=== PATIENT | male | born 2000 | race American Indian/Alaskan Native ===

== ENCOUNTER 2021-01-08 12:03 | Emergency (ER) | payer MEDICAID ==
[2021-01-08 14:28] VITALS: BP 127/46
--- NOTE | 2021-01-08 14:49 | Emergency Department Report ---
ED General Adult HPI - General Chief complaint: Urogenital-Male Stated complaint: BLOON IN URINE Time Seen by Provider: 01/08/21 14:42 Source: patient Mode of arrival: Ambulatory Limitations: No Limitations - History of Present Illness Initial comments: 20-year-old sexually active male patient presents to emergency department with complaints of hematuria and dysuria starting today. Patient noticed 2 episodes of this today. No known history of STDs. No medical problems. Patient is not anticoagulated. Denies fever, chills, abdominal pain, nausea, vomiting, diarrhea, testicular pain/swelling, penile discharge. Denies all other complaints at this time. - Related Data Previous Rx's Medication Instructions Recorded Last Taken Type Doxycycline Hyclate 100 mg PO BID 7 Days tablet. 01/08/21 Unknown Rx Allergies Allergy/AdvReac Type Severity Reaction Status Date / Time No Known Allergies Allergy Unverified 01/08/21 14:25 ED Review of Systems ROS: Stated complaint: BLOON IN URINE Other details as noted in HPI Other: GENERAL: Negative for fever, chills, weight change, anorexia, fatigue. ENT: Negative for ear pain, difficulty hearing, sore throat, nasal congestion, epistaxis. CARDIOVASCULAR: Negative for chest pain, palpitations, lower extremity swelling. PULMONARY: Negative for cough, dyspnea, wheezing, orthopnea, cyanosis. GASTROINTESTINAL: Negative for abdominal pain, nausea, vomiting, diarrhea, constipation. GENITOURINARY: Positive for dysuria and hematuria. MUSCULOSKELETAL: Negative for joint pain, joint swelling, myalgias, back pain, neck pain. NEUROLOGICAL: Negative for headache, seizure, syncope, paresthesias, weakness. INTEGUMENTARY: Negative for erythema, rash, diaphoresis, laceration, ecchymosis. HEMATOLOGICAL: Negative for hemoptysis, hematemesis, hematochezia, hematuria. PSYCHIATRIC: Negative for hallucinations, suicidal ideation, homicidal ideation, anxiety, depression. ED Past Medical Hx - Past Medical History Hx Asthma: Yes - Surgical History Past Surgical History?: No - Medications Home Medications: Home Medications Medication Instructions Recorded Confirmed Last Taken Type Doxycycline Hyclate 100 mg PO BID 7 Days tablet. 01/08/21 Unknown Rx ED Physical Exam - General Limitations: No Limitations - Other Other exam information: General: Awake and alert. No acute distress. Head: Atraumatic, normocephalic. Eyes: EOMI. Pupils are equal and round. Normal sclera and conjunctiva. ENT: Oral mucosa is moist. Normal pharyngeal exam. Neck: Supple. No lymphadenopathy. Pulmonary: No respiratory distress. Clear to auscultation bilaterally. Cardiac: Regular rate and rhythm. Pulses are palpable and equal bilaterally. No lower extremity cyanosis or edema. Skin: Warm and dry. No rashes. Abdomen: Soft, non-tender, non-protuberant. No guarding, rigidity, or rebound. Bowel sounds are normal. No organomegaly or masses noted. 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 Normal external inspection. No evidence of inguinal hernia. No scrotal edema or tenderness. No testicular asymmetry. No blood or discharge at the urethral meatus. No rashes or lesions. Back: Normal alignment. No CVA tenderness. Extremities: Symmetrical. Full range of motion intact. Neurological: Alert and oriented, appropriately interactive, no focal deficits. Psych: Cooperative. Appropriate mood and affect. Speech is evenly metered. Thoughts are logically construed. ED Course Vital Signs 01/08/21 14:27 Temperature 97.8 F Pulse Rate 64 Respiratory 17 Rate Blood Pressure 127/46 [Right] O2 Sat by Pulse 100 Oximetry ED Medical Decision Making - Medical Decision Making Differential diagnosis including but not limited to: testicular torsion, pyelonephritis, nephrolithiasis, urinary tract infection, sexually transmitted infection, prostatitis On evaluation, patient remains stable. Urinalysis consistent with UTI. Cultures sent. Given the patient's age and sexual history, urinary tract infection is most likely attributable to sexually transmitted disease. Patient will be treated empirically per CDC guidelines pending confirmatory cultures. Emphasized the importance of adhering to medication regimen for prescribed duration and notifying all previous sexual partners to be evaluated at the local health department. Patient expressed understanding and is agreeable to plan of care. Disease transmission precautions discussed. Strict return precautions provided. Repeat exam is unremarkable and benign. History, exam, diagnostic testing, and current condition do not suggest worrisome pathology to warrant further testing, continued ED treatment, admission, or surgical evaluation at this point. Given the low probability of a significant medical illness, it would be more likely to result in harm than benefit to perform further testing at this stage. Discussed findings, presumptive diagnosis, need for follow-up and specific signs/symptoms that should prompt immediate return to the emergency department. Instructions were explained in detail to the patient in addition to giving written discharge information. Patient expressed understanding and was given the opportunity to ask questions, all of which were satisfactorily answered prior to discharge home. Critical care attestation.: If time is entered above; I have spent that time in minutes in the direct care of this critically ill patient, excluding procedure time. ED Disposition Clinical Impression: Nonspecific urethritis Disposition: DC-01 TO HOME OR SELFCARE Is pt being admited?: No Does the pt Need Aspirin: No Condition: Stable Additional Instructions: Take Doxycycline with food as directed. Avoid prolonged sun exposure while taking this medication. Use condoms when engaging in sexual intercourse. Follow-up with Dr. Lowery, primary care provider, within one week. Call tomorrow to schedule an appointment. Return to the emergency department immediately for new or worsening symptoms. Specifically, return to the emergency department immediately for fever, abdominal pain, inability to urinate, vomiting, rash, or any other concerns. Prescriptions: Doxycycline Hyclate 100 mg PO BID 7 Days tablet. Referrals: KUSUM MACDONALD MD [Primary Care Provider] - 3-5 Days MEGGAN LOWERY MD [Staff Physician] - 3-5 Days Forms: STI Treatment and Prevention Time of Disposition: 16:31
[2021-01-08 15:52] LABS: Bacteria,Urine 1+ /HPF (Negative); Bilirubin,Urine NEG (Negative); Blood,Urine SM (Negative); Color,Urine Yellow (Yellow); Mucus,Urine 2+ /HPF; Protein,Urine <15 mg/dL mg/dL (Negative)
[2021-01-08] MEDS ORDERED: LIDOCAINE-MPF (1%) 10 MG/1 ML VIAL 5 ML INFILTRATI ONE (16:28)
[2021-01-08] MEDS ORDERED: AZITHROMYCIN 250 MG TAB PO ONE (16:28)
[2021-01-08] MEDS ORDERED: METOCLOPRAMIDE 10 MG TAB PO ONE (16:29)
[2021-01-08] MEDS ORDERED: DOXYCYCLINE 100 MG CAP PO ONE (17:16)
== END 2021-01-08 18:57 | disposition home or self-care (01) ==
LOC: ED 12:03
DX: N34.1 Nonspecific urethritis (principal); J45.909 Unspecified asthma, uncomplicated; Z79.899 Other long term (current) drug therapy
CPT/HCPCS: 81001; 87086; 96372; 99283; J0696